=== PATIENT | female | born 1990 | race Caucasian/White ===

== ENCOUNTER → 2020-03-19 | Outpatient (CLI) | payer OTHER ==
[~2020-03-19] MED LIST: ALBU90OI INH; AMOCLA875 PO; Adipex-P37.5 MG PO; Amoxicillin875 MG PO; BCPS; BENZ100A PO; BUSP5; CHOL10002 PO; CIPDEXSU BOTHEARS; CLOT10 SS; Cough Formula118 ML PO; FENOFIBRATE130 MG PO; HYDACE5 PO; IBUP600 PO; IBUP800 PO; LAMICTAL XR50 MG; Mucinex600 MG PO; OXYACE5T PO; OXYC5; PERM5TC TOP; PPI; PRED10 PO; Percocet 5-3251 EACH PO; Polytrim Eye Dr10 ML LEFTEYE; Prednisone20 MG PO; Prilosec Otc20 MG; RXANTBENOT AD; RXOXYACE PO; TRIA80TC TOP; Verotin-Gr Cap1 EACH PO; Zofran Odt8 MG SL
[2020-03-21 13:07] LABS: HPV 16 Negative (Negative); HPV 18 Negative (Negative); HPV OTHER HR TYPES Negative (Negative)
[2020-03-23 10:09] LABS: FREE TESTOSTERONE(DIRECT) 8.7 pg/mL (0.0-4.2)
== END ==
LOC: LAB 19:19 → LAB SHORT 19:19
PROVIDERS: Registered Nurse Community Health
DX: Z12.4 Encounter for screening for malignant neoplasm of cervix (principal); R68.82 Decreased libido
CPT/HCPCS: 87624; G0123

== ENCOUNTER 2020-03-28 11:54 | Day surgery (SDC) | payer OTHER ==
[~2020-03-28] VITALS: Ht 172.7 cm; Wt 115.9 kg
--- NOTE | 2020-03-28 14:15 | NUR ---
03/28/20 [address] BRICE, SEND PT. WITH LIDOCAINE JELLY FOR HOME. LIDOCAINE JELLY APPLIED PER DR. BRICE IN ENDO ROOM.
== END 2020-03-28 13:20 | disposition home or self-care (01) ==
LOC: ORSCSDS 11:54
PROVIDERS: Internal Medicine Gastroenterology
PROC: 06LY4CC Occlusion of Hemorrhoidal Plexus with Extraluminal Device, Percutaneous Endoscopic Approach (ICD-10-PCS; principal; 2020-03-28 13:15)
DX: K62.5 Hemorrhage of anus and rectum (principal); K62.89 Other specified diseases of anus and rectum; K64.8 Other hemorrhoids; K64.4 Residual hemorrhoidal skin tags; K21.9 Gastro-esophageal reflux disease without esophagitis; F31.9 Bipolar disorder, unspecified; F41.8 Other specified anxiety disorders; Z79.899 Other long term (current) drug therapy
CPT/HCPCS: J2704; J7120

== ENCOUNTER 2020-12-07 18:50 | Emergency (ER) | payer OTHER ==
[~2020-12-07] VITALS: Ht 172.7 cm; Wt 122.9 kg
[2020-12-07] MEDS ORDERED: Adipex-P37.5 MG PO (20:35)
[2020-12-07] MEDS ORDERED: IBU600 M1 PO (20:36)
[2020-12-07] MEDS ORDERED: CEFP200 PO (20:51)
[2020-12-07] MEDS ORDERED: Prednisone20 MG PO (21:52)
== END 2020-12-07 22:46 | disposition home or self-care (01) ==
LOC: ER 18:50
DX: J40 Bronchitis, not specified as acute or chronic (principal); N39.0 Urinary tract infection, site not specified; Z79.899 Other long term (current) drug therapy; Z87.891 Personal history of nicotine dependence
CPT/HCPCS: 71045; 94640; 99285-25; A9270; J7512

== ENCOUNTER → 2023-11-14 | Outpatient (CLI) | payer SELFPAY ==
[~2023-11-14] MED LIST changes: +CEFP200 PO; +IBU600 M1 PO
[2023-11-14 15:02] LABS: Source, Urine Clean Catch
[2023-11-14 17:08] LABS: Appearance, Urine Hazy (Clear); Bilirubin, Urine Neg (Neg); Blood, Urine Neg (Neg); Color, Urine Yellow (P-Yellow); Glucose Qualitative, Urine Neg (Neg); Ketones, Urine Neg (Neg); Leukocyte Esterase, Urine Neg (Neg); Nitrite, Urine Neg (Neg); Protein, Urine Neg (Neg); Specific Gravity, Urine 1.015 (1.003-1.022); Urobilinogen, Urine NORM (Normal)
[2023-11-14 17:23] LABS: Bacteria Few /hpf; Red Blood Cells, Urine 0-2 /hpf (0-2); Squamous Epithelial Cells Few /hpf (Few); White Blood Cells, Urine 0-2 /hpf (0-5)
[2023-11-14 17:24] LABS: Amorphous Mod (0-Heavy)
== END ==
LOC: LAB SHORT 12:00 → LAB 12:00
PROVIDERS: Registered Nurse Community Health
DX: Z34.91 Encounter for supervision of normal pregnancy, unspecified, first trimester (principal)
CPT/HCPCS: 81001; 87086

== ENCOUNTER → 2023-12-01 | Outpatient (CLI) | payer OTHER ==
[2023-12-03 10:05] LABS: APTIMA MEDIA TYPE Urine; C. TRACHOMATIS BY TMA Negative (Negative); N. GONORRHOEAE BY TMA Negative (Negative); SPECIMEN SOURCE Urine
== END ==
LOC: LAB 11:39 → LAB SHORT 11:39
PROVIDERS: Registered Nurse Community Health
DX: O99.891 Other specified diseases and conditions complicating pregnancy (principal); N89.8 Other specified noninflammatory disorders of vagina; Z3A.00 Weeks of gestation of pregnancy not specified
CPT/HCPCS: 87070; 87205; 87491; 87591

== ENCOUNTER → 2023-12-01 | Outpatient (CLI) | payer OTHER ==
[2023-12-01 14:43] LABS: BASOPHILS ABSOLUTE AUTO 0.02 K/mm3 (0.00-0.23); BASOPHILS PERCENT AUTO 0 % (0-2); EOSINOPHILS ABSOLUTE AUTO 0.04 K/mm3 (0.00-0.68); EOSINOPHILS PERCENT AUTO 1 % (0-6); IMMATURE GRAN ABSOLUTE AUTO 0.03 K/mm3 (0.00-0.10); IMMATURE GRAN PERCENT AUTO 0 % (0-1); LYMPHOCYTES PERCENT AUTO 19 % (21-46); MONOCYTES ABSOLUTE AUTO 0.24 K/mm3 (0.16-1.47); MONOCYTES PERCENT AUTO 3 % (4-13); Mean Corpuscular HGB 29.5 pg (26.0-34.0); Mean Corpuscular HGB Conc 33.3 g/dL (31.5-36.5); Mean Corpuscular Volume 89 fL (80-100); Mean Platelet Volume 11.9 fL (9.1-12.4); NEUTROPHILS ABSOLUTE AUTO 5.47 K/mm3 (1.96-9.15); NEUTROPHILS PERCENT AUTO 76 % (41-73); Platelet Count 220 K/mm3 (150-400); RDW Coefficient Variation 12.5 % (11.7-14.2); RDW Standard Deviation 40.4 fL (35.1-46.3); Red Blood Cell Count 4.07 M/mm3 (3.80-5.20)
[2023-12-02 15:02] LABS: HEPATITIS B SURFACE ANTIGEN Negative (Negative)
[2023-12-02 17:26] LABS: HEPATITIS C AB CIA INTERP Negative (Negative); HEPATITIS C ANTIBODY CIA INDEX 0.03 IV
[2023-12-02 18:52] LABS: HIV 1,2 COMBO ANTIGEN/ANTIBODY Negative (Negative)
== END ==
LOC: LAB SHORT 13:14 → LAB 13:14
PROVIDERS: Registered Nurse Community Health
DX: Z34.81 Encounter for supervision of other normal pregnancy, first trimester (principal)
CPT/HCPCS: 83036; 84443; 86803; 87340; 87389

== ENCOUNTER 2024-06-13 14:28 | Inpatient (IN) | payer OTHER ==
[2024-06-13] VITALS (9 sets, daily range): BP systolic 136–182; BP diastolic 67–86
[~2024-06-13] VITALS: Ht 172.7 cm; Wt 141.3 kg
[~2024-06-13 14:28] MED LIST changes: +ACET325 PO; +DOCU100 PO; +LABE100 PO; +MIRALAX17 GM PO; +OMEP20ER PO; +PRENATAL TABLE1 EAC2 PO; +ROPI.25 PO
[2024-06-13 15:43] LABS: Source, Urine Clean Catch
[2024-06-13 15:47] LABS: Appearance, Urine Cloudy (Clear); Bilirubin, Urine Neg (Neg); Blood, Urine 5+ (Neg); Color, Urine Yellow (P-Yellow); Glucose Qualitative, Urine Neg (Neg); Ketones, Urine Neg (Neg); Leukocyte Esterase, Urine 1+ (Neg); Nitrite, Urine Neg (Neg); Protein, Urine 2+ (Neg); Urobilinogen, Urine NORM (Normal)
[2024-06-13 16:00] LABS: Albumin, Blood 2.2 g/dL (3.4-5.0); Albumin/Globulin Ratio 0.6 (0.8-1.8); Bilirubin, Total 0.2 mg/dL (0.1-1.0); Bun/Creatinine Ratio 12.9 (12.0-20.0); Calcium, Blood 8.3 mg/dL (8.5-10.1); Creatinine, Blood 0.7 mg/dL (0.40-1.00); Magnesium, Blood 1.9 mg/dL (1.6-2.4); Potassium, Blood 3.9 mmol/L (3.5-5.5); Total Protein, Blood 6.2 g/dL (6.4-8.2)
[2024-06-13 16:01] LABS: Red Blood Cells, Urine TNTC /hpf (0-2)
[2024-06-13 16:02] LABS: Bacteria Mod /hpf; Squamous Epithelial Cells Mod /hpf (Few)
[2024-06-13 16:24] LABS: BASOPHILS ABSOLUTE AUTO 0.04 K/mm3 (0.00-0.23); BASOPHILS PERCENT AUTO 1 % (0-2); EOSINOPHILS PERCENT AUTO 3 % (0-6); Hematocrit 27.4 % (33.0-51.0); Hemoglobin 8.2 g/dL (11.5-16.0); IMMATURE GRAN ABSOLUTE AUTO 0.18 K/mm3 (0.00-0.10); IMMATURE GRAN PERCENT AUTO 3 % (0-1); LYMPHOCYTES ABSOLUTE AUTO 1.38 K/mm3 (0.84-5.20); LYMPHOCYTES PERCENT AUTO 19 % (21-46); MONOCYTES ABSOLUTE AUTO 0.45 K/mm3 (0.16-1.47); MONOCYTES PERCENT AUTO 6 % (4-13); Mean Corpuscular HGB 25.8 pg (26.0-34.0); Mean Corpuscular HGB Conc 29.9 g/dL (31.5-36.5); Mean Corpuscular Volume 86 fL (80-100); Mean Platelet Volume 10.7 fL (9.1-12.4); NEUTROPHILS ABSOLUTE AUTO 5.04 K/mm3 (1.96-9.15); NEUTROPHILS PERCENT AUTO 69 % (41-73); Platelet Count 232 K/mm3 (150-400); RDW Coefficient Variation 14.6 % (11.7-14.2); RDW Standard Deviation 43.2 fL (35.1-46.3); Red Blood Cell Count 3.18 M/mm3 (3.80-5.20); White Blood Cell Count 7.29 K/mm3 (4.00-11.30)
[2024-06-13] MEDS ORDERED: Labetalol HCL 5 MG/ML 4ML Injection (Single Dose) IV ONE ×3 (18:25→21:10)
[2024-06-13] MEDS ORDERED: FUROSEMIDE20 MG PO (18:34)
[2024-06-13] MEDS ORDERED: OXYC10TA19 PO (18:34)
[2024-06-13] MEDS ORDERED: Magnesium Sulf 2 GM/Water 50ML 50 ML IV ONE (20:25)
[2024-06-13] MEDS ORDERED: Ondansetron HCl 2 MG / ML 2ML Vial IV ONE (21:20)
[2024-06-13] MEDS ORDERED: OxyCODONE HCL 5 MG TAB PO ONE (21:20)
[2024-06-13] MEDS ORDERED: Magnesium Sulfate 500 ML IV SCH (22:30)
[2024-06-13] MEDS ORDERED: Lactated Ringer's 1,000 ML IV SCH (22:30)
[2024-06-13] MEDS ORDERED: Magnesium Sul 4 GM/Water100 ML 100 ML IV ONE (22:30)
[2024-06-13] MEDS ORDERED: Calcium Gluconate 0.465 mEq/ml 10 ml Vial IV PRN (22:30)
[2024-06-13] MEDS ORDERED: Labetalol HCL 100 MG TAB PO SCH (22:55)
[2024-06-14] VITALS (24 sets, daily range): BP systolic 102–145; BP diastolic 53–75
[2024-06-14] MEDS ORDERED: Ketorolac Tromethamine 30mg Vial IV PRN ×2 (00:15→01:50)
[2024-06-14] MEDS ORDERED: Labetalol HCL 100 MG TAB PO SCH ×2 (00:25→09:00)
--- NOTE | 2024-06-14 00:34 | NUR ---
LATE ENTRY DUE TO PT CARE. TELEPHONE REPORT RECEIVED FROM ER NURSE AT 2134. PT ARRIVED TO UNIT AND IN ROOM AT 2150. ORIENTATED TO ROOM AND CALL [facility] SYSTEM. PT AMBULATED TO BED. ARM MEASURED TO ENSURE PROPER BP CUFF SIZE - SWITCHED TO LARGE CUFF AND SET TO CYCLE [id number]. PT DENIES ANY HYPERTENSIVE SYMPTOMS. MILD PITTING EDEMA TO BILATERAL MID CALVES TO FEET. NO CLONUS PRESENT. LUNGS CLEAR BILATERALLY ON AUSCULTATION. REFLEXES +2. SCDS APPLIED TO BILATERAL CALVES AND TURNED ON. DR MARSHALL NOTIFIED OF PTS ARRIVAL AT 2200. DR MARSHALL IN ROOM AT 2299. DISCUSSED PLAN OF CARE - RESUME MAGNESIUM DRIP, START PO LABETALOL, AND CLOSE MONITORING. DR MARSHALL EXPLAINED RISKS OF PRE-ECLAMPSIA AND SIDE EFFECTS OF MAGNESIUM DRIP. PT AGREEABLE TO PLAN OF CARE. PT AWARE TO VOID INTO MEASUREMENT HAT IN TOILET THEN ALERT NURSING STAFF, PT AWARE TO ALERT NURSING STAFF IF DEVELOPS ANY HYPERTENSIVE SYMPTOMS OR FEELING UNWELL. MAGNESIUM INITIATED WITH ANOTHER RN PER EMAR.
[2024-06-14] MEDS ORDERED: HyDROXyzine HCl 10 MG Tab PO PRN (01:45)
[2024-06-14] MEDS ORDERED: Ibuprofen 400 MG Tab PO PRN (01:45)
--- NOTE | 2024-06-14 02:15 | NUR ---
HANDOVER REPORT GIVEN TO Gayatri KOEHLER RN
[2024-06-14] MEDS ORDERED: Pantoprazole Sodium 40 MG Tab PO SCH (06:00)
[2024-06-14 06:05] LABS: BASOPHILS ABSOLUTE AUTO 0.04 K/mm3 (0.00-0.23); BASOPHILS PERCENT AUTO 1 % (0-2); EOSINOPHILS ABSOLUTE AUTO 0.17 K/mm3 (0.00-0.68); EOSINOPHILS PERCENT AUTO 3 % (0-6); Hematocrit 23.5 % (33.0-51.0); Hemoglobin 7.1 g/dL (11.5-16.0); IMMATURE GRAN ABSOLUTE AUTO 0.18 K/mm3 (0.00-0.10); IMMATURE GRAN PERCENT AUTO 3 % (0-1); LYMPHOCYTES ABSOLUTE AUTO 1.36 K/mm3 (0.84-5.20); LYMPHOCYTES PERCENT AUTO 20 % (21-46); MONOCYTES ABSOLUTE AUTO 0.45 K/mm3 (0.16-1.47); MONOCYTES PERCENT AUTO 7 % (4-13); Mean Corpuscular HGB 25.6 pg (26.0-34.0); Mean Corpuscular HGB Conc 30.2 g/dL (31.5-36.5); Mean Corpuscular Volume 85 fL (80-100); Mean Platelet Volume 10.8 fL (9.1-12.4); NEUTROPHILS ABSOLUTE AUTO 4.65 K/mm3 (1.96-9.15); NEUTROPHILS PERCENT AUTO 68 % (41-73); Platelet Count 216 K/mm3 (150-400); RDW Coefficient Variation 14.8 % (11.7-14.2); RDW Standard Deviation 43.3 fL (35.1-46.3); Red Blood Cell Count 2.77 M/mm3 (3.80-5.20); White Blood Cell Count 6.85 K/mm3 (4.00-11.30)
[2024-06-14 06:25] LABS: Albumin, Blood 2.1 g/dL (3.4-5.0); Albumin/Globulin Ratio 0.6 (0.8-1.8); Bilirubin, Total 0.1 mg/dL (0.1-1.0); Bun/Creatinine Ratio 14.1 (12.0-20.0); Calcium, Blood 7.7 mg/dL (8.5-10.1); Creatinine, Blood 0.64 mg/dL (0.40-1.00); Globulin, Blood 3.4 g/dL (2.2-4.0); Potassium, Blood 3.8 mmol/L (3.5-5.5); Total Protein, Blood 5.5 g/dL (6.4-8.2)
[2024-06-14] MEDS ORDERED: Bumetanide 0.25 MG/ML 10ML Vial IV ONE (08:00)
--- NOTE | 2024-06-14 08:50 | NUR ---
VERBAL ORDER FROM DR MARSHALL TO D/C PT PO LABETALOL AT THIS TIME. MAG WILL STAY ON UNTIL THE 24HR ROSALIE.
[2024-06-14 14:38] LABS: BASOPHILS ABSOLUTE AUTO 0.04 K/mm3 (0.00-0.23); BASOPHILS PERCENT AUTO 1 % (0-2); EOSINOPHILS ABSOLUTE AUTO 0.16 K/mm3 (0.00-0.68); EOSINOPHILS PERCENT AUTO 2 % (0-6); Hematocrit 26.2 % (33.0-51.0); IMMATURE GRAN ABSOLUTE AUTO 0.19 K/mm3 (0.00-0.10); IMMATURE GRAN PERCENT AUTO 3 % (0-1); LYMPHOCYTES ABSOLUTE AUTO 1.08 K/mm3 (0.84-5.20); LYMPHOCYTES PERCENT AUTO 14 % (21-46); MONOCYTES ABSOLUTE AUTO 0.56 K/mm3 (0.16-1.47); MONOCYTES PERCENT AUTO 7 % (4-13); Mean Corpuscular HGB 25.8 pg (26.0-34.0); Mean Corpuscular HGB Conc 30.5 g/dL (31.5-36.5); Mean Corpuscular Volume 85 fL (80-100); Mean Platelet Volume 10.7 fL (9.1-12.4); NEUTROPHILS ABSOLUTE AUTO 5.55 K/mm3 (1.96-9.15); NEUTROPHILS PERCENT AUTO 73 % (41-73); Platelet Count 256 K/mm3 (150-400); RDW Coefficient Variation 15.1 % (11.7-14.2); White Blood Cell Count 7.58 K/mm3 (4.00-11.30)
[2024-06-14 15:00] LABS: Albumin, Blood 2.3 g/dL (3.4-5.0); Albumin/Globulin Ratio 0.6 (0.8-1.8); Bilirubin, Total 0.3 mg/dL (0.1-1.0); Calcium, Blood 7.4 mg/dL (8.5-10.1); Creatinine, Blood 0.64 mg/dL (0.40-1.00); Globulin, Blood 3.7 g/dL (2.2-4.0); Percent Saturation 8.4 % (15.0-50.0); Potassium, Blood 4.2 mmol/L (3.5-5.5)
[2024-06-14] MEDS ORDERED: Ondansetron HCl 2 MG / ML 2ML Vial ONE (15:29)
[2024-06-14] MEDS ORDERED: Ondansetron HCl 2 MG / ML 2ML Vial IV PRN (15:35)
[2024-06-14] MEDS ORDERED: Diphenoxylat/Atrop 2.5 / 0.025MG 1 Tab PO PRN (17:30)
--- NOTE | 2024-06-14 17:31 | NUR ---
DR MARSHALL UPDATED ABOUT PT DIARHEA, NAUSEA. ORDER FOR ZOFRAN AND LOMOTIL. ORLIN DRESSING OK TO BE REMOVED WITH ADHESIVE REMOVER WIPES.
--- NOTE | 2024-06-14 21:10 | NUR ---
NOTE; MAGNESIUM DRIP TURNED OFF AT 0.
[2024-06-15 01:14] VITALS: BP 129/62
[2024-06-15 04:59] VITALS: BP 130/65
[2024-06-15 05:58] LABS: BASOPHILS ABSOLUTE AUTO 0.04 K/mm3 (0.00-0.23); BASOPHILS PERCENT AUTO 1 % (0-2); EOSINOPHILS ABSOLUTE AUTO 0.17 K/mm3 (0.00-0.68); EOSINOPHILS PERCENT AUTO 2 % (0-6); Hematocrit 24.8 % (33.0-51.0); Hemoglobin 7.5 g/dL (11.5-16.0); IMMATURE GRAN ABSOLUTE AUTO 0.18 K/mm3 (0.00-0.10); IMMATURE GRAN PERCENT AUTO 3 % (0-1); LYMPHOCYTES ABSOLUTE AUTO 1.17 K/mm3 (0.84-5.20); LYMPHOCYTES PERCENT AUTO 17 % (21-46); MONOCYTES ABSOLUTE AUTO 0.49 K/mm3 (0.16-1.47); MONOCYTES PERCENT AUTO 7 % (4-13); Mean Corpuscular HGB Conc 30.2 g/dL (31.5-36.5); Mean Corpuscular Volume 86 fL (80-100); Mean Platelet Volume 10.8 fL (9.1-12.4); NEUTROPHILS ABSOLUTE AUTO 4.97 K/mm3 (1.96-9.15); NEUTROPHILS PERCENT AUTO 71 % (41-73); Platelet Count 247 K/mm3 (150-400); RDW Coefficient Variation 15.2 % (11.7-14.2); RDW Standard Deviation 45.3 fL (35.1-46.3); Red Blood Cell Count 2.89 M/mm3 (3.80-5.20); White Blood Cell Count 7.02 K/mm3 (4.00-11.30)
[2024-06-15 06:28] LABS: Albumin, Blood 2.2 g/dL (3.4-5.0); Albumin/Globulin Ratio 0.6 (0.8-1.8); Bilirubin, Total 0.2 mg/dL (0.1-1.0); Bun/Creatinine Ratio 15.9 (12.0-20.0); Creatinine, Blood 0.63 mg/dL (0.40-1.00); Globulin, Blood 3.7 g/dL (2.2-4.0); Potassium, Blood 4.2 mmol/L (3.5-5.5); Total Protein, Blood 5.9 g/dL (6.4-8.2)
[2024-06-15 07:33] VITALS: BP 135/63
[2024-06-15] MEDS ORDERED: Sod Ferric Gluc Complx/Sucrose 125 MG in NS 100 ML IV ONE (09:00)
[2024-06-15 10:22] VITALS: BP 135/73
== END 2024-06-15 10:45 | disposition home or self-care (01) | DRG 776 ==
LOC: ER 14:28 → BC 14:29
PROVIDERS: Family Medicine; Physician Assistant; Student in an Organized Health Care Education/Training Program; ADMIT Family Medicine
DX: O14.95 Unspecified pre-eclampsia, complicating the puerperium (principal); O24.439 Gestational diabetes mellitus in the puerperium, unspecified control; O99.345 Other mental disorders complicating the puerperium; F31.9 Bipolar disorder, unspecified; F41.9 Anxiety disorder, unspecified; O90.81 Anemia of the puerperium; D64.9 Anemia, unspecified; Z79.899 Other long term (current) drug therapy; Z87.891 Personal history of nicotine dependence
CPT/HCPCS: 36415; 80053; 81001; 82728; 83540; 83550; 83615; 83735; 84484; 85025; 87086; 96365; 96375; 96376; 99285-25; A9270; J1885; J2405; J2916; J3475; J7120

== ENCOUNTER → 2024-08-30 | Outpatient (CLI) | payer OTHER ==
[~2024-08-30] MED LIST changes: +FUROSEMIDE20 MG PO; +OXYC10TA19 PO
[2024-08-30 13:30] LABS: Hematocrit 32.9 % (33.0-51.0); Hemoglobin 10.9 g/dL (11.5-16.0); Mean Corpuscular HGB 26.4 pg (26.0-34.0); Mean Corpuscular HGB Conc 33.1 g/dL (31.5-36.5); Mean Corpuscular Volume 80 fL (80-100); Mean Platelet Volume 11.5 fL (9.1-12.4); Platelet Count 250 K/mm3 (150-400); RDW Coefficient Variation 14.1 % (11.7-14.2); RDW Standard Deviation 40.6 fL (35.1-46.3); Red Blood Cell Count 4.13 M/mm3 (3.80-5.20); White Blood Cell Count 6.85 K/mm3 (4.00-11.30)
[2024-08-30 15:10] LABS: Free Thyroxine 1.05 ng/dL (0.70-1.60); Thyroid Stimulating Hormone 2.4 uIU/mL (0.360-4.800); Triiodothyronine, Free 2.59 pg/mL (2.18-3.98)
[2024-09-01 04:46] LABS: ANTI-NUCLEAR AB ANA,IGG ELISA None Detected (None Detected)
== END ==
LOC: LAB SHORT 11:42 → LAB 11:42
PROVIDERS: Registered Nurse Community Health
DX: M25.50 Pain in unspecified joint (principal); R73.9 Hyperglycemia, unspecified
CPT/HCPCS: 82306; 83036; 84439; 84443; 84481; 85027; 86038

== ENCOUNTER → 2024-09-17 | Outpatient (CLI) | payer OTHER ==
[2024-09-18 15:23] LABS: Source, Urine Clean Catch
[2024-09-18 16:12] LABS: Bilirubin, Urine Neg (Neg); Blood, Urine Neg (Neg); Color, Urine Yellow (P-Yellow); Glucose Qualitative, Urine Neg (Neg); Ketones, Urine Neg (Neg); Leukocyte Esterase, Urine Neg (Neg); Nitrite, Urine Neg (Neg); Protein, Urine 1+ (Neg); Specific Gravity, Urine 1.025 (1.003-1.022); Urobilinogen, Urine NORM (Normal)
[2024-09-18 16:19] LABS: Appearance, Urine Clear (Clear)
== END | disposition home or self-care (01) ==
LOC: LAB 15:30 → LAB SHORT 15:30
PROVIDERS: Registered Nurse
DX: R30.0 Dysuria (principal)
CPT/HCPCS: 87086

== ENCOUNTER → 2025-06-07 | Outpatient (CLI) | payer OTHER ==
[~2025-06-07] MED LIST changes: +ESTR2 PO; +METHYLENE BLUE PO; +PROM25 PO; +ROPI1 PO; +SIME80CH PO; +[UNRECOGNIZED DRUG - OTHER] SL
[2025-06-14 08:32] LABS: OVA AND PARASITE,FECAL INTERP Negative (Negative)
== END | disposition home or self-care (01) ==
LOC: LAB 12:01 → LAB SHORT 12:01
PROVIDERS: Nurse Practitioner Family
DX: B83.9 Helminthiasis, unspecified (principal); L29.0 Pruritus ani
CPT/HCPCS: 87177; 87209

== ENCOUNTER → 2025-06-08 | Outpatient (CLI) | payer OTHER ==
[2025-06-14 08:29] LABS: OVA AND PARASITE,FECAL INTERP Negative (Negative)
== END | disposition home or self-care (01) ==
LOC: LAB 12:08 → LAB SHORT 12:08
PROVIDERS: Nurse Practitioner Family
DX: L29.0 Pruritus ani (principal); B83.9 Helminthiasis, unspecified
CPT/HCPCS: 87177; 87209

== ENCOUNTER → 2025-06-09 | Outpatient (CLI) | payer OTHER ==
[2025-06-10 15:31] LABS: Campylobacter Sp Not Detected (NOT DETECT)
[2025-06-10 15:32] LABS: E. Coli O157 Not Detected (NOT DETECT); Enteroaggregative E. coli-EAEC Not Detected (NOT DETECT); Enteropathogenic E. coli-EPEC Not Detected (NOT DETECT); Enterotoxigenic E. coli-ETEC Not Detected (NOT DETECT); Salmonella Sp Not Detected (NOT DETECT); Shiga Toxin-prod E. coli-STEC Not Detected (NOT DETECT); Shigella/Enteroin E. coli-EIEC Not Detected (NOT DETECT); Vibrio Sp Not Detected (NOT DETECT)
[2025-06-14 12:46] LABS: OVA AND PARASITE,FECAL INTERP Negative (Negative)
== END ==
LOC: LAB 12:13 → LAB SHORT 12:13
PROVIDERS: Nurse Practitioner Family
DX: L29.0 Pruritus ani (principal); B83.9 Helminthiasis, unspecified
CPT/HCPCS: 87177; 87209; 87507